=== PATIENT | female | born 1950 | race African-American/Black ===

== ENCOUNTER 2019-07-09 10:51 | Outpatient (CLI) | payer MEDICARE ==
--- NOTE | 2019-07-09 11:55 | MRI ---
MRI LUMBAR SPINE WITHOUT CONTRAST: HISTORY: Lumbar radiculopathy. Right leg pain, status post surgery. COMPARISON: None. FINDINGS: Appropriate T1 marrow signal intensity of the lumbar vertebrae. Lumbar spine vertebral body height is maintained. No fracture. No significant STIR hyperintensity to suggest vertebral body edema or ligamentous injury. Appropriate signal intensity of the visualized paraspinal muscles. Appropriate signal intensity of th e visualized solid organs. The conus medullaris terminates at the upper aspect of L1. T12-L1: No significant central canal stenosis or significant neural foraminal narrowing. L1-L2: No significant central canal stenosis or significant neural foraminal narrowing. There is mild ligament flavum thickening and facet hypertrophy. L2-L3: Desiccation with mild loss of disc space height. Broad-based disc bulge, ligament flavum thick ening and facet hypertrophy are present. There is a 0.3 cm left-sided synovial cyst. There is resultant moderate to severe central canal stenosis. Partial obscuration of bilateral traversing L3 n erve roots. Mild right neural foraminal narrowing. Moderate to severe left foraminal narrowing due to disc material, synovial cyst and facet hypertrophy. L3-L4: Desiccation with mild to moderate loss of disc space height. Broad-based disc bulge, ligament flavum thickening and facet hypertrophy result in moderate central canal stenosis. Narrowing of both subarticular zones with partial obscuration of bilateral traversing L4 nerve roots. Right neural foramen is patent. Mild to moderate left neural foraminal narrowing due to disc material and facet hypertrophy. L4-L5:Desiccation with mild loss of disc space height. Broad-based disc bulge minimally flattens the thecal sac. There is ligamentum flavum thickening and facet hypertrophy. Mild central canal stenosis. Narrowing of both subarticular zones with partial obscuration of bilateral traversing L5 ne rve roots. Mild right neural foraminal narrowing. Mild to moderate left neural foraminal narrowing. L5-S1:Adequate disc hydration. No significant posterior disc abnormality. Minimal encroachment upon t he left and right subarticular zones without significant obscuration of either traversing S1 nerve root. No significant central canal stenosis. Bilateral facet hypertrophy with fluid in both facet hu nts. Mild bilateral neural foraminal narrowing. IMPRESSION: Degenerative changes of the lumbar spine as detailed above. Transcribed Date/Time: 07/09/2019 11:59 AM
== END 2019-07-09 10:52 | disposition home or self-care (01) ==
LOC: MRI 10:51
PROVIDERS: ATTEND Family Medicine
DX: M47.26 Other spondylosis with radiculopathy, lumbar region (principal); M47.27 Other spondylosis with radiculopathy, lumbosacral region
CPT/HCPCS: 72148

== ENCOUNTER 2019-10-22 09:06 | Outpatient (CLI) | payer MEDICARE ==
--- NOTE | 2019-10-22 09:26 | ULT ---
US Abdominal Aorta HISTORY: Screening for abdominal aortic aneurysm COMPARISON: None. FINDINGS: The abdominal aorta measures 2.4 cm in maximum AP dimension in the proximal aspect. IMPRESSION: No evidence of abdominal aortic aneurysm
== END 2019-10-22 09:07 | disposition home or self-care (01) ==
LOC: BICULT 09:06
PROVIDERS: ATTEND Internal Medicine
DX: Z13.6 Encounter for screening for cardiovascular disorders (principal)
CPT/HCPCS: 76775

== ENCOUNTER 2022-06-24 17:02 | Emergency (ER) | payer MEDICARE ==
[2022-06-24] MEDS ORDERED: Acetaminophen 500 MG TAB ONE (18:04)
[2022-06-24] MEDS ORDERED: Bupivacaine 0.25% 10 ML VIAL ONE (18:07)
[2022-06-24] MEDS ORDERED: Fluorescein Opthalmic Strip ONE (18:07)
[2022-06-24] MEDS ORDERED: Proparacaine 0.5% Opth 15 ML BOT ONE (18:09)
== END 2022-06-24 19:54 | disposition home or self-care (01) ==
LOC: ERS 17:02
DX: H61.22 Impacted cerumen, left ear (principal); H11.32 Conjunctival hemorrhage, left eye
CPT/HCPCS: 69209; S0020